=== PATIENT | female | born 1970 | race Caucasian/White ===

== ENCOUNTER 2020-01-22 02:26 | Emergency (ER) | payer SELFPAY ==
--- NOTE | 2020-01-22 02:44 | EDM.PDOC ---
ED HPI GENERAL MEDICAL PROBLEM - General Chief Complaint: Abdominal Pain Stated Complaint: UPPER ABDOMINAL PAIN THAT GOES INTO BACK Time Seen by Provider: 01/22/20 02:36 - History of Present Illness INITIAL COMMENTS - FREE TEXT/NARRATIVE: 49-year-old female presents to the emergency room with right upper quadrant pain. This pain started about 5 hours ago she has some associated nausea and a little bit of vomiting with it. Pain seems to radiate into her back and into her left anterior chest. The patient had an episode like this about 20 years ago but nothing recently. The patient has started a keto diet. Patient denies any fevers or chills. The patient is started the keto diet about 2 months ago this evening for supper she had baked chicken cauliflower and jalapeno poppers. Right Upper Abdomen Pain Score (Numeric/FACES): 10 - Related Data Allergies Allergy/AdvReac Type Severity Reaction Status Date / Time methylprednisolone Allergy Other Verified 01/22/20 02:37 [From Medrol] prednisone Allergy Other Verified 01/22/20 02:37 varenicline [From Chantix] Allergy Other Verified 01/22/20 02:37 Home Meds: Home Meds Albuterol Sulfate [Proair Hfa] 8.5 gm IH Q4HR PRN #1 hfa.aer.ad 02/18/18 [Rx] Benzonatate [Tessalon Perle] 100 mg PO TID #15 capsule 02/18/18 [Rx] Lisinopril 20 mg PO DAILY 02/18/18 [History] Venlafaxine [Effexor] 75 mg PO DAILY 02/18/18 [History] Acetaminophen/HYDROcodone [[place] 325-5 MG] 1 - 2 tab PO Q6H PRN #25 tablet 01/22/20 [Rx] Ondansetron [Zofran ODT] 4 mg PO Q6H PRN #12 tab.dis 01/22/20 [Rx] Past Medical History HEENT History: Reports: Other (See Below) Other HEENT History: left ear surgery-new eardrum revision Cardiovascular History: Reports: Hypertension Psychiatric History: Reports: Anxiety - Past Surgical History HEENT Surgical History: Reports: Adenoidectomy, Tonsillectomy Female Surgical History: Reports: Section Social & Family History - Caffeine Use Caffeine Use: Reports: Coffee, Energy Drinks, Soda, Tea ED ROS GENERAL - Review of Systems Review Of Systems: See Below Constitutional: Reports: No Symptoms Respiratory: Reports: No Symptoms Cardiovascular: Reports: Chest Pain (This seems to be radiating from her abdomen) GI/Abdominal: Reports: Abdominal Pain, Nausea, Vomiting. Denies: Constipation, Diarrhea : Reports: No Symptoms Musculoskeletal: Reports: No Symptoms Skin: Reports: No Symptoms Neurological: Reports: No Symptoms ED EXAM, GI/ABD - Physical Exam Exam: See Below Exam Limited By: No Limitations General Appearance: Alert, Moderate Distress (From the discomfort), Obese (She is morbidly obese BMI 55.6) Head: Atraumatic, Normocephalic Neck: Normal Inspection, Supple, Non-Tender, Full Range of Motion Respiratory/Chest: No Respiratory Distress, Lungs Clear, Normal Breath Sounds Cardiovascular: Regular Rate, Rhythm, No Edema, No Murmur GI/Abdominal Exam: Normal Bowel Sounds, Soft, Other (If you get right upper quadrant pain palpation over the gallbladder seems to cause the pain that brought the patient in) Back Exam: Normal Inspection. No: CVA Tenderness (L), CVA Tenderness (R) Course - Vital Signs Last Recorded V/S: Last Vital Signs Temp 36.6 C 01/22/20 02:35 Pulse 107 H 01/22/20 02:35 Resp 18 01/22/20 02:35 BP 159/118 H 01/22/20 02:35 Pulse Ox 97 01/22/20 02:35 - Orders/Labs/Meds Orders: Active Orders 24 hr Category Date Time Status EKG Documentation Completion [RC] STAT Care 01/22/20 02:54 Active Labs: Laboratory Tests 01/22/20 01/22/20 Range/Units 02:45 02:45 WBC 10.29 H (3.98-10.04) K/mm3 RBC 4.57 (3.98-5.22) M/mm3 Hgb 14.0 (11.2-15.7) gm/dl Hct 43.2 (34.1-44.9) % MCV 94.5 (79.4-94.8) fl MCH 30.6 (25.6-32.2) pg MCHC 32.4 (32.2-35.5) g/dl RDW Std Deviation 45.1 (36.4-46.3) fL Plt Count 332 (182-369) K/mm3 MPV 9.7 (9.4-12.3) fl Neut % (Auto) 64.4 (34.0-71.1) % Lymph % (Auto) 23.3 (19.3-51.7) % [place] % (Auto) 7.6 (4.7-12.5) % Eos % (Auto) 3.9 (0.7-5.8) Baso % (Auto) 0.5 (0.1-1.2) % Neut # (Auto) 6.63 H (1.56-6.13) K/mm3 Lymph # (Auto) 2.40 (1.18-3.74) K/mm3 [place] # (Auto) 0.78 H (0.24-0.36) K/mm3 Eos # (Auto) 0.40 H (0.04-0.36) K/mm3 Baso # (Auto) 0.05 (0.01-0.08) K/mm3 Manual Slide Review Normal smear Sodium 137 (136-145) mEq/L Potassium 4.5 (3.5-5.1) mEq/L Chloride 102 (98-107) mEq/L Carbon Dioxide 28 (21-32) mEq/L Anion Gap 11.5 (5-15) BUN 25 H (7-18) mg/dL Creatinine 1.2 H (0.55-1.02) mg/dL Est Cr Clr Drug Dosing 48.97 mL/min Estimated GFR (MDRD) 48 (>60) mL/min BUN/Creatinine Ratio 20.8 H (14-18) Glucose 148 H (74-106) mg/dL Calcium 9.2 (8.5-10.1) mg/dL Total Bilirubin 0.3 (0.2-1.0) mg/dL Direct Bilirubin 0.00 (0.0-0.2) mg/dl AST 13 L (15-37) U/L ALT 32 (14-59) U/L Alkaline Phosphatase 77 (46-116) U/L Troponin I < 0.017 (0.00-0.056) ng/mL Total Protein 7.5 (6.4-8.2) g/dl Albumin 3.6 (3.4-5.0) g/dl Globulin 3.9 gm/dL Albumin/Globulin Ratio 0.9 L (1-2) Lipase 86 (73-393) U/L Meds: Medications Discontinued Medications Generic Name Dose Route Start Last Admin Trade Name Shivamq PRN Reason Stop Dose Admin Hydrocodone Bitart/Acetaminophen 2 tab 01/22/20 04:42 [place] 325-5 Mg PO 01/22/20 04:43 ONETIME ONE Fentanyl 50 mcg 01/22/20 02:57 01/22/20 03:06 Sublimaze IVPUSH 01/22/20 02:58 50 mcg ONETIME ONE Administration Ondansetron HCl 4 mg 01/22/20 02:57 01/22/20 03:04 Zofran IVPUSH 01/22/20 02:58 4 mg ONETIME ONE Administration - Re-Assessments/Exams Free Text/Narrative Re-Assessment/Exam: 01/22/20 04:43 Had brief symptom improvement with the fentanyl. Unfortunately we were busy with urgencies here in the emergency room and it took us a while to get back to her. Her laboratory evaluation is probably okay her white count is minimally elevated compared to our normal at 10.29 chemistries show a normal anion gap however BUN is elevated 25 creatinine 1.2. Transaminases normal bilirubin normal. 01/22/20 04:52 Dr. Cruz is unavailable as he is in a surgery I did discuss this with the patient she would really like to go home right now I will discuss the case with the surgeon after he gets out of surgery. I have put an order in for an outpatient gallbladder ultrasound to be forwarded to her regular provider and 01/22/20 05:09 I did review the patient's case lab values and vital signs with Dr. Cruz who agrees with disposition and plan. Departure - Departure Time of Disposition: 04:50 Disposition: Home, Self-Care 01 Clinical Impression: Right upper quadrant pain - Discharge Information Prescriptions: Acetaminophen/HYDROcodone [[place] 325-5 MG] 1 - 2 tab PO Q6H PRN #25 tablet PRN Reason: Pain Ondansetron [Zofran ODT] 4 mg PO Q6H PRN #12 tab.dis PRN Reason: Nausea/Vomiting Instructions: Abdominal Pain, Adult, Awmg-dt-Gmpl Referrals: Laurel Srinivasan NP [Primary Care Provider] - Elodia Cruz MD [Physician] - Forms: ED Department Discharge Additional Instructions: Return to the emergency room with any questions problems or worsening symptoms. Follow-up with Dr. Cruz later this week. You have been given [place], hydrocodone acetaminophen, take 1 or 2 every 6 hours as needed for pain. You have also been given Zofran, this is for nausea and vomiting take 1 every 6 hours only if needed for nausea and vomiting. This will dissolve on or under your tongue. Sepsis Event Note (ED) - Focused Exam Vital Signs: Vital Signs Temp Pulse Resp BP Pulse Ox 01/22/20 02:35 36.6 C 107 H 18 159/118 H 97 - My Orders Last 24 Hours: My Active Orders 01/22/20 02:54 EKG Documentation Completion [RC] STAT - Assessment/Plan Last 24 Hours: My Active Orders 01/22/20 02:54 EKG Documentation Completion [RC] STAT
[2020-01-22] MEDS ORDERED: Ondansetron 4 MG/2 ML SDV IVPUSH ONE (02:57)
[2020-01-22] MEDS ORDERED: fentaNYL 100 MCG/2 ML SDV IVPUSH ONE (02:57)
[2020-01-22] MEDS ORDERED: Acetaminophen/HYDROcodone 325-5 MG Tab PO ONE (04:42)
== END 2020-01-22 05:13 | disposition home or self-care (01) ==
LOC: JD.ED 02:26
DX: R10.11 Right upper quadrant pain (principal); I10 Essential (primary) hypertension; F41.9 Anxiety disorder, unspecified; Z88.8 Allergy status to other drugs, medicaments and biological substances; Z79.899 Other long term (current) drug therapy
CPT/HCPCS: 36415; 80053; 82248; 83690; 84484; 85025; 93005; 96374; 96375; 99284; A9270; J2405; J3010; 93010

== ENCOUNTER 2020-05-29 07:35 | Emergency (ER) | payer SELFPAY ==
--- NOTE | 2020-05-29 08:55 | CR ---
Chest: Portable view of the chest was obtained. Comparison: Prior chest x-ray of 02/18/18. Increased density is seen within the right lung base. This is noted on prior study but appears slightly more prominent. Lungs show no definite acute parenchymal change. Heart size and mediastinum are normal. Bony structures show nothing acute. Impression: 1. Density within the right lung base appears slightly more prominent. This most likely represents an area of scarring but recommend noncontrast chest CT study to confirm. 2. Nothing acute is otherwise seen on portable chest x-ray. Diagnostic code #9
--- NOTE | 2020-05-29 09:24 | CT ---
CT chest Technique: Multiple axial sections were obtained from above the dome of the diaphragm inferiorly through the lung bases. Intravenous contrast was not utilized. Reconstructed coronal and sagittal images were obtained. Comparison: Prior chest x-ray performed earlier on the same day (7:55 AM). Findings: Lungs are clear. Previous density on chest x-ray is not appreciated on this CT exam. Findings most likely represent overlying normal parenchymal change. Thoracic aorta shows no aneurysm. No mediastinal abnormality is seen. Minimal coronary artery calcification is noted. No pericardial thickening is appreciated. Diffuse fatty infiltration is seen within the liver. Bone window settings were reviewed which show minimal scattered degenerative change within the spine. No acute osseous finding is appreciated. Impression: 1. Nothing acute is seen on noncontrast chest CT study. Other incidental findings as noted above. 2. Prior density on chest x-ray is not confirmed on the chest CT presumably representing artifact from normal overlying tissues. Diagnostic code #2
[2020-05-29] MEDS ORDERED: cefTRIAXone 1 GM, Lidocaine 1% 2.1 ML IM ONE ×2 (09:39)
[2020-05-29] MEDS ORDERED: Doxycycline 100 MG Cap PO ONE (09:39)
--- NOTE | 2020-05-29 09:49 | EDM.PDOC ---
ED HPI GENERAL MEDICAL PROBLEM - General Chief Complaint: General Stated Complaint: L EAR PAIN / R ANKLE PAIN Time Seen by Provider: 05/29/20 07:45 Source of Information: Reports: Patient History Limitations: Reports: No Limitations - History of Present Illness INITIAL COMMENTS - FREE TEXT/NARRATIVE: The patient has come in with 2 complaints. For several days she has been trou bled by an earache on the left. She has been swimming and thinks this is irritated it. She has also been using Q-tips in both ears. She notes that she has a perforated TM on the left. There has been no fever, nausea, vomiting, chest pain, cough, or shortness of breath. Additionally for about 3 days she has been troubled with worsening tenderness and redness of the skin distal right leg laterally just above the ankle. Dependency and walking makes it hurt worse. As noted above no fever or other troubling symptoms. Risk factors consist of morbid obesity, former smoking status, known COPD, and diabetes. Left Ear Pain Score (Numeric/FACES): 7 - Related Data Allergies Allergy/AdvReac Type Severity Reaction Status Date / Time varenicline [From Chantix] Allergy Severe Other Verified 05/29/20 07:46 methylprednisolone AdvReac Severe Other Verified 05/29/20 07:46 [From Medrol] prednisone AdvReac Severe Other Verified 05/29/20 07:46 Home Meds: Home Meds Albuterol Sulfate [Proair Hfa] 8.5 gm IH Q4HR PRN #1 hfa.aer.ad 02/18/18 [Rx] Lisinopril 20 mg PO DAILY 02/18/18 [History] Venlafaxine [Effexor] 75 mg PO DAILY 02/18/18 [History] Amoxicillin/Clavulanate K [Augmentin 875-125 MG] 1 tab PO BID #20 tablet 05/29/20 [Rx] Doxycycline [Vibramycin] 100 mg PO BID #20 cap 05/29/20 [Rx] Dulaglutide [Trulicity] 0 mg SQ WEEKLY 05/29/20 [History] Past Medical History HEENT History: Reports: Other (See Below) Other HEENT History: left ear surgery-new eardrum revision. 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 Cardiovascular History: Reports: Hypertension Psychiatric History: Reports: Anxiety Endocrine/Metabolic History: Reports: Diabetes, Type II, Obesity/BMI 30+ - Infectious Disease History Infectious Disease History: Reports: MRSA - Past Surgical History HEENT Surgical History: Reports: Adenoidectomy, Tonsillectomy Female Surgical History: Reports: Section Social & Family History - Tobacco Use Tobacco Use Status *Q: Former Tobacco User - Caffeine Use Caffeine Use: Reports: Soda - Recreational Drug Use Recreational Drug Use: No ED ROS GENERAL - Review of Systems Review Of Systems: Comprehensive ROS is negative, except as noted in HPI. ED EXAM, GENERAL - Physical Exam Exam: See Below Exam Limited By: No Limitations General Appearance: Alert, WD/WN, No Apparent Distress, Other (See full exam below.) Course - Vital Signs Text/Narrative:: Exam the patient is obese and in no distress. Head normocephalic atraumatic. EOMI PERRLA. Examination of the right ear, there is edema of the canal and some mild excoriation. She could not permit an exam that would permit me to see the tympanic membrane. On the left side there was even more pronounced edema of the canal and a good bit of pain on exam. Again she could not permit the speculum to be advanced to the point that the TM could be seen let alone the perforation. Neck supple without JVD. Lungs, decreased breath sounds bilaterally but otherwise clear. Heart regular, initially a bit tachycardic but normal at the time of exam. Abdomen soft, obese, no tenderness or other signs. No guarding or rebound. There is mild erythema of the right leg laterally just above the ankle. No pronounced angry cellulitic appearance but just mild erythema. It is confluent with a maximum dimension about 10 cm longitudinally. There is no calf tenderness. No Homans. No pitting edema. Neurologically the patient is intact, fluent speech no lateralizing deficits. She is calm and a ffect normal. Last Recorded V/S: Last Vital Signs Temp 35.6 C L 05/29/20 07:42 Pulse 103 H 05/29/20 07:42 Resp 20 05/29/20 07:42 BP 141/86 H 05/29/20 07:42 Pulse Ox 96 05/29/20 07:42 - Orders/Labs/Meds Labs: Laboratory Tests 05/29/20 05/29/20 05/29/20 Range/Units 08:02 08:07 08:30 WBC 10.75 H (3.98-10.04) K/mm3 RBC 4.43 (3.98-5.22) M/mm3 Hgb 13.8 (11.2-15.7) gm/dl Hct 43.1 (34.1-44.9) % MCV 97.3 H (79.4-94.8) fl MCH 31.2 (25.6-32.2) pg MCHC 32.0 L (32.2-35.5) g/dl RDW Std Deviation 46.2 (36.4-46.3) fL Plt Count 271 (182-369) K/mm3 MPV 9.6 (9.4-12.3) fl Neut % (Auto) 70.5 (34.0-71.1) % Lymph % (Auto) 16.1 L (19.3-51.7) % [place] % (Auto) 10.2 (4.7-12.5) % Eos % (Auto) 2.2 (0.7-5.8) Baso % (Auto) 0.5 (0.1-1.2) % Neut # (Auto) 7.58 H (1.56-6.13) K/mm3 Lymph # (Auto) 1.73 (1.18-3.74) K/mm3 [place] # (Auto) 1.10 H (0.24-0.36) K/mm3 Eos # (Auto) 0.24 (0.04-0.36) K/mm3 Baso # (Auto) 0.05 (0.01-0.08) K/mm3 Manual Slide Review Normal smear Sodium (136-145) mEq/L Potassium (3.5-5.1) mEq/L Chloride (98-107) mEq/L Carbon Dioxide (21-32) mEq/L Anion Gap (5-15) BUN (7-18) mg/dL Creatinine (0.55-1.02) mg/dL Est Cr Clr Drug Dosing mL/min Estimated GFR (MDRD) (>60) mL/min BUN/Creatinine Ratio (14-18) Glucose (74-106) mg/dL Calcium (8.5-10.1) mg/dL Total Bilirubin (0.2-1.0) mg/dL AST (15-37) U/L ALT (14-59) U/L Alkaline Phosphatase (46-116) U/L C-Reactive Protein (<1.0) mg/dL Total Protein (6.4-8.2) g/dl Albumin (3.4-5.0) g/dl Globulin gm/dL Albumin/Globulin Ratio (1-2) Urine Color Yellow (Yellow) Urine Appearance Clear (Clear) Urine pH 5.5 (5.0-8.0) Ur Specific [place] > or = 1.030 (1.005-1.030) Urine Protein Trace H (Negative) Urine Glucose (UA) Trace H (Negative) Urine Ketones Trace H (Negative) Urine Occult Blood Negative (Negative) Urine Nitrite Negative (Negative) Urine Bilirubin Negative (Negative) Urine Urobilinogen 0.2 (0.2-1.0) Ur Leukocyte Esterase Negative (Negative) Urine RBC 0-5 (0-5) /hpf Urine WBC 0-5 (0-5) /hpf Ur Squamous Epith Cells 0-5 (0-5) /hpf Urine Bacteria Many H (FEW) /hpf Urine Mucus Few (FEW) /hpf Urine HCG, Qual Negative (NEGATIVE) 05/29/20 Range/Units 08:30 WBC (3.98-10.04) K/mm3 RBC (3.98-5.22) M/mm3 Hgb (11.2-15.7) gm/dl Hct (34.1-44.9) % MCV (79.4-94.8) fl MCH (25.6-32.2) pg MCHC (32.2-35.5) g/dl RDW Std Deviation (36.4-46.3) fL Plt Count (182-369) K/mm3 MPV (9.4-12.3) fl Neut % (Auto) (34.0-71.1) % Lymph % (Auto) (19.3-51.7) % [place] % (Auto) (4.7-12.5) % Eos % (Auto) (0.7-5.8) Baso % (Auto) (0.1-1.2) % Neut # (Auto) (1.56-6.13) K/mm3 Lymph # (Auto) (1.18-3.74) K/mm3 [place] # (Auto) (0.24-0.36) K/mm3 Eos # (Auto) (0.04-0.36) K/mm3 Baso # (Auto) (0.01-0.08) K/mm3 Manual Slide Review Sodium 141 (136-145) mEq/L Potassium 4.2 (3.5-5.1) mEq/L Chloride 102 (98-107) mEq/L Carbon Dioxide 29 (21-32) mEq/L Anion Gap 14.2 (5-15) BUN 15 (7-18) mg/dL Creatinine 1.0 (0.55-1.02) mg/dL Est Cr Clr Drug Dosing 58.12 mL/min Estimated GFR (MDRD) 59 (>60) mL/min BUN/Creatinine Ratio 15.0 (14-18) Glucose 242 H (74-106) mg/dL Calcium 9.1 (8.5-10.1) mg/dL Total Bilirubin 0.5 (0.2-1.0) mg/dL AST 20 (15-37) U/L ALT 51 (14-59) U/L Alkaline Phosphatase 81 (46-116) U/L C-Reactive Protein 3.6 H* (<1.0) mg/dL Total Protein 7.2 (6.4-8.2) g/dl Albumin 3.4 (3.4-5.0) g/dl Globulin 3.8 gm/dL Albumin/Globulin Ratio 0.9 L (1-2) Urine Color (Yellow) Urine Appearance (Clear) Urine pH (5.0-8.0) Ur Specific [place] (1.005-1.030) Urine Protein (Negative) Urine Glucose (UA) (Negative) Urine Ketones (Negative) Urine Occult Blood (Negative) Urine Nitrite (Negative) Urine Bilirubin (Negative) Urine Urobilinogen (0.2-1.0) Ur Leukocyte Esterase (Negative) Urine RBC (0-5) /hpf Urine WBC (0-5) /hpf Ur Squamous Epith Cells (0-5) /hpf Urine Bacteria (FEW) /hpf Urine Mucus (FEW) /hpf Urine HCG, Qual (NEGATIVE) Meds: Medications Discontinued Medications Generic Name Dose Route Start Last Admin Trade Name Freq PRN Reason Stop Dose Admin Ceftriaxone Sodium 1 gm/ 0 gm 05/29/20 09:39 05/29/20 10:11 Lidocaine HCl 2.1 ml IM 05/29/20 09:40 1 inj ONETIME ONE Administration Doxycycline Hyclate 200 mg 05/29/20 09:39 05/29/20 10:11 Doxycycline 100 Mg Cap PO 05/29/20 09:40 200 mg ONETIME ONE Administration Ketorolac Tromethamine 15 mg 05/29/20 10:20 Ketorolac 30 Mg/Ml Sdv IM 05/29/20 10:21 ONETIME ONE Neomycin/Polymyxin/Hydrocortisone 0 ml 05/29/20 10:15 05/29/20 10:10 Hydrocortisone/Neomycin/Polymyxin B Otic Susp 10 Ml Bottle EARBOTH 05/29/20 10:16 4 drop ONETIME ONE Administration - Re-Assessments/Exams Free Text/Narrative Re-Assessment/Exam: 05/29/20 09:56 Chest x-ray was noted to show possible density in the left lower lobe. This was thought to be scar tissue but noncontrast CT was recommended which showed no acute pathology in the chest. Labs have been reviewed. Blood glucose a bit elevated. C-reactive protein in the threes. Not surprisingly with evidence of infection. Urine is clean. Patient is being treated with 1 application of Cortisporin optic drops in both ears for relief of some of the edema but she is not to continue these drops at home. She is received a gram of Rocephin IM in the emergency department as well as a 200 mg p.o. dose of doxycycline. Patient should have overnight improvement in her symptoms and if not she is to return to the ER for recheck at any time even tomorrow. Departure - Departure Time of Disposition: 10:00 Disposition: Home, Self-Care 01 Condition: Good Clinical Impression: Otitis externa Qualifiers: Otitis externa type: unspecified type Chronicity: acute Laterality: bilateral Qualified Code(s): H60.503 - Unspecified acute noninfective otitis externa, bilateral Cellulitis Qualifiers: Site of cellulitis: extremity Site of cellulitis of extremity: lower extremity Laterality: right Qualified Code(s): L03.115 - Cellulitis of right lower limb - Discharge Information Prescriptions: Amoxicillin/Clavulanate K [Augmentin 875-125 MG] 1 tab PO BID #20 tablet Doxycycline [Vibramycin] 100 mg PO BID #20 cap Referrals: Laurel Srinivasan, [employer] [Primary Care Provider] - Forms: ED Department Discharge Additional Instructions: Primary within 3 days. She needs referral to an research pharmacist. As there is no ENT in [facility] the referral will have to be to [facility] Is there is no great urgency requiring transfer this can be accomplished over the next few days. In any event if there is any lack of resolution or improvement she needs to return to the ER and transfer will be contemplated. Sepsis Event Note (ED) - Evaluation Sepsis Screening Result: No Definite Risk - Focused Exam Vital Signs: Vital Signs Temp Pulse Resp BP Pulse Ox 05/29/20 07:42 35.6 C L 103 H 20 141/86 H 96
[2020-05-29] MEDS ORDERED: Hydrocortisone/Neomycin/Polymyxin B Otic Susp 10 ML Bottle EARBOTH ONE (10:15)
[2020-05-29] MEDS ORDERED: Ketorolac 30 MG/ML SDV IM ONE (10:20)
== END 2020-05-29 10:49 | disposition home or self-care (01) ==
LOC: JD.ED 07:35
DX: H60.503 Unspecified acute noninfective otitis externa, bilateral (principal); L03.115 Cellulitis of right lower limb; I10 Essential (primary) hypertension; E11.9 Type 2 diabetes mellitus without complications; E66.9 Obesity, unspecified; Z68.44 Body mass index [BMI] 60.0-69.9, adult; Z87.891 Personal history of nicotine dependence; Z88.8 Allergy status to other drugs, medicaments and biological substances; Z79.899 Other long term (current) drug therapy
CPT/HCPCS: 36415; 71045; 71250; 80053; 81001; 81025; 85025; 86140; 96372; 99284; A9270; J0696; J1885

== ENCOUNTER 2020-05-31 20:56 | Emergency (ER) | payer SELFPAY ==
[2020-05-31] MEDS ORDERED: Ketorolac 15 MG/ML SDV IVPUSH ONE (21:49)
--- NOTE | 2020-05-31 22:23 | EDM.PDOC ---
ED HPI GENERAL MEDICAL PROBLEM - General Chief Complaint: Skin Complaint Stated Complaint: EAR PAIN AND ANKLE PAIN Time Seen by Provider: 05/31/20 21:00 Source of Information: Reports: Patient History Limitations: Reports: No Limitations - History of Present Illness INITIAL COMMENTS - FREE TEXT/NARRATIVE: Patient was seen 2 days ago for problems related to her left ear which is an otitis externa and probably an otitis media though the exam was suboptimal as noted in previous record. Patient was also troubled by a mild soft tissue infection of her right leg laterally just above the ankle. She has come back in because the pain in her left ear is worse and now her left ear is prominent and the external ear is being slightly protuberant. She is also complaining of pain at the site of the soft tissue infection right lower leg. The patient has been taking antibiotics as directed. She was treated with Rocephin in the emergency department and she was discharged on Augmentin and Bactrim. She says she is taking her antibiotics as directed and has the bottles with her. There has been no fever or vira respiratory symptoms. Patient is just feeling a bit worse especially with respect to her left ear. Risk factors consist of hypertension, [id number] diabetes mellitus, and morbid obesity. The patient is a former smoker having quit about a year ago. Right Ankle Pain Score (Numeric/FACES): 8 Left Ear Pain Score (Numeric/FACES): 8 - Related Data Allergies Allergy/AdvReac Type Severity Reaction Status Date / Time varenicline [From Chantix] Allergy Severe Other Verified 05/31/20 21:08 methylprednisolone AdvReac Severe Other Verified 05/31/20 21:08 [From Medrol] prednisone AdvReac Severe Other Verified 05/31/20 21:08 Home Meds: Home Meds Albuterol Sulfate [Proair Hfa] 8.5 gm IH Q4HR PRN #1 [id number] 02/18/18 [Rx] Lisinopril 20 mg PO DAILY 02/18/18 [History] Venlafaxine [Effexor] 75 mg PO DAILY 02/18/18 [History] Amoxicillin/Clavulanate K [Augmentin 875-125 MG] 1 tab PO BID #20 tablet 05/29/20 [Rx] Doxycycline [Vibramycin] 100 mg PO BID #20 cap 05/29/20 [Rx] Dulaglutide [Trulicity] 1 injection SQ WEEKLY 05/29/20 [History] Past Medical History HEENT History: Reports: Other (See Below) Other HEENT History: left ear surgery-new eardrum revision. 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 Cellulitis to L ear Cardiovascular History: Reports: Hypertension Psychiatric History: Reports: Anxiety Endocrine/Metabolic History: Reports: Diabetes, Type II, Obesity/BMI 30+ Dermatologic History: Reports: Cellulitis - Infectious Disease History Infectious Disease History: Reports: MRSA - Past Surgical History HEENT Surgical History: Reports: Adenoidectomy, Tonsillectomy Female Surgical History: Reports: Section Social & Family History - Family History Family Medical History: No Pertinent Family History - Tobacco Use Tobacco Use Status *Q: Former Tobacco User Used Tobacco, but Quit: Yes Month/Year Tobacco Last Used: 2018 - Caffeine Use Caffeine Use: Reports: Soda - Recreational Drug Use Recreational Drug Use: No ED ROS GENERAL - Review of Systems Review Of Systems: Comprehensive ROS is negative, except as noted in HPI. ED EXAM, SKIN/RASH Exam: See Below Text/Narrative:: On exam the patient is alert and does not appear at all toxic. Head normocephalic atraumatic. EOMI PERRLA. The right ear canal is still a bit edematous and there is too much pain to advance the speculum far enough to see the tympanic membrane. The left ear is now prominent and standing out from the head a bit. There is still a good bit of edema in the canal and tenderness to the point that the speculum cannot be advanced far enough to see the tympanic membrane. Neck is supple without jugular venous distention. Lungs are grossly clear. Heart is regular. Abdomen is soft and nontender. Calves are somewhat tender bilaterally without vira Homans' sign. The erythema that was noted previously lower right leg laterally has faded to a great extent but there is still tenderness on deep palpation. There is no pitting edema. No cyanosis or clubbing of the digits. Neurologically the patient is intact, speech is fluent, no motor or sensory deficit. Skin is warm and dry with normal turgor. Course - Vital Signs Text/Narrative:: There is some concern because the patient has had appropriate outpatient antibio tic therapy without improvement of her otitis. Though she is still complaining about her right lower leg it has clinically improved. There is no fever and no white count. The otitis of her left ear appears to have worsened despite compliance with antibiotic therapy and now with the ear is somewhat protuberant. We spoke with Dr. Joy ENT in [place]. He has asked us to place ear emerson and soak them with an antibiotic-containing steroid. Emerson were placed in the ears bilaterally. Only available attic drops, Cortisporin, and the emerson were soaked with that. Patient is discharged. 2 Percocets have been given to the patient 1 now and 1 to take later as needed. She is to see Dr. Joy tomorrow morning, actually this morning, at 8:30 AM. His address and other contact information in [place] were given to the patient. She understands and is happy with this plan. Last Recorded V/S: Last Vital Signs Temp 36.2 C 05/31/20 21:04 Pulse 95 05/31/20 21:04 Resp 18 05/31/20 21:04 BP 155/88 H 05/31/20 21:04 Pulse Ox 100 05/31/20 21:04 - Orders/Labs/Meds Orders: Active Orders 24 hr Category Date Time Status Chest 1V Frontal [CR] Stat Exams 05/31/20 21:35 Taken Head w Cont [CT] Stat Exams 05/31/20 21:51 Taken Soft Tissue Neck w Cont [CT] Stat Exams 05/31/20 21:51 Taken Acetaminophen/oxyCODONE [Percocet 325-5 MG] Med 06/01/20 01:09 Once 2 tab PO ONETIME ONE Sodium Chloride 0.9% [Normal Saline] 100 ml Med 05/31/20 23:30 Active IV ASDIRECTED Medication Orders Sodium Chloride (Normal Saline) 100 mls @ 60 drops/min IV ASDIRECTED TISH Last Admin: 05/31/20 23:25 Dose: 60 drops/min Documented by: ONEIGIN Oxycodone/Acetaminophen (Acetaminophen/Oxycodone 325-5 Mg Tab) 2 tab PO ONETIME ONE Stop: 06/01/20 01:10 Labs: Laboratory Tests 05/31/20 05/31/20 05/31/20 Range/Units 21:45 21:45 21:45 WBC 8.96 (3.98-10.04) K/mm3 RBC 4.31 (3.98-5.22) M/mm3 Hgb 13.5 (11.2-15.7) gm/dl Hct 41.9 (34.1-44.9) % MCV 97.2 H (79.4-94.8) fl MCH 31.3 (25.6-32.2) pg MCHC 32.2 (32.2-35.5) g/dl RDW Std Deviation 45.6 (36.4-46.3) fL Plt Count 288 (182-369) K/mm3 MPV 9.4 (9.4-12.3) fl Neutrophils % (Manual) 69 H (40-60) % Band Neutrophils % 0 (0-10) % Lymphocytes % (Manual) 25 (20-40) % Atypical Lymphs % 0 % Monocytes % (Manual) 5 (2-10) % Eosinophils % (Manual) 1 (0.7-5.8) % Basophils % (Manual) 0 L (0.1-1.2) Platelet Estimate Adequate RBC Morph Comment Normal D-Dimer, Quantitative 0.33 (0.19-0.50) mg/L Sodium 141 (136-145) mEq/L Potassium 4.4 (3.5-5.1) mEq/L Chloride 103 (98-107) mEq/L Carbon Dioxide 32 (21-32) mEq/L Anion Gap 10.4 (5-15) BUN 14 (7-18) mg/dL Creatinine 0.9 (0.55-1.02) mg/dL Est Cr Clr Drug Dosing 64.58 mL/min Estimated GFR (MDRD) > 60 (>60) mL/min BUN/Creatinine Ratio 15.6 (14-18) Glucose 153 H (74-106) mg/dL Calcium 9.4 (8.5-10.1) mg/dL Total Bilirubin 0.4 (0.2-1.0) mg/dL AST 23 (15-37) U/L ALT 44 (14-59) U/L Alkaline Phosphatase 75 (46-116) U/L Total Protein 7.2 (6.4-8.2) g/dl Albumin 3.2 L (3.4-5.0) g/dl Globulin 4.0 gm/dL Albumin/Globulin Ratio 0.8 L (1-2) SARS-CoV-2 RNA (SHAKIRA) (NEGATIVE) 05/31/20 Range/Units 22:58 WBC (3.98-10.04) K/mm3 RBC (3.98-5.22) M/mm3 Hgb (11.2-15.7) gm/dl Hct (34.1-44.9) % MCV (79.4-94.8) fl MCH (25.6-32.2) pg MCHC (32.2-35.5) g/dl RDW Std Deviation (36.4-46.3) fL Plt Count (182-369) K/mm3 MPV (9.4-12.3) fl Neutrophils % (Manual) (40-60) % Band Neutrophils % (0-10) % Lymphocytes % (Manual) (20-40) % Atypical Lymphs % % Monocytes % (Manual) (2-10) % Eosinophils % (Manual) (0.7-5.8) % Basophils % (Manual) (0.1-1.2) Platelet Estimate RBC Morph Comment D-Dimer, Quantitative (0.19-0.50) mg/L Sodium (136-145) mEq/L Potassium (3.5-5.1) mEq/L Chloride (98-107) mEq/L Carbon Dioxide (21-32) mEq/L Anion Gap (5-15) BUN (7-18) mg/dL Creatinine (0.55-1.02) mg/dL Est Cr Clr Drug Dosing mL/min Estimated GFR (MDRD) (>60) mL/min BUN/Creatinine Ratio (14-18) Glucose (74-106) mg/dL Calcium (8.5-10.1) mg/dL Total Bilirubin (0.2-1.0) mg/dL AST (15-37) U/L ALT (14-59) U/L Alkaline Phosphatase (46-116) U/L Total Protein (6.4-8.2) g/dl Albumin (3.4-5.0) g/dl Globulin gm/dL Albumin/Globulin Ratio (1-2) SARS-CoV-2 RNA (SHAKIRA) Negative (NEGATIVE) Meds: Medications Generic Name Dose Route Start Last Admin Trade Name Freq PRN Reason Stop Dose Admin Sodium Chloride 100 mls @ 60 drops/min 05/31/20 23:30 05/31/20 23:25 Normal Saline IV 60 drops/min ASDIRECTED TISH Administration Oxycodone/Acetaminophen 2 tab 06/01/20 01:09 Acetaminophen/Oxycodone 325-5 Mg Tab PO 06/01/20 01:10 ONETIME ONE Discontinued Medications Generic Name Dose Route Start Last Admin Trade Name Delvin PRN Reason Stop Dose Admin Iopamidol 100 ml 05/31/20 23:24 05/31/20 23:26 Iopamidol 612 Mg/Ml 100 Ml Bottle IVPUSH 05/31/20 23:25 100 ml ONETIME ONE Administration Ketorolac Tromethamine 15 mg 05/31/20 21:49 05/31/20 22:02 Ketorolac 15 Mg/Ml Sdv IVPUSH 05/31/20 21:50 15 mg ONETIME ONE Administration Neomycin/Polymyxin/Hydrocortisone Confirm 06/01/20 00:58 06/01/20 01:02 Hydrocortisone/Neomycin/Polymyxin B Otic Susp 10 Ml Bottle Administered 06/01/20 00:59 10 ml Dose Administration 10 ml .ROUTE .STK-MED ONE Departure - Departure Time of Disposition: 01:15 Disposition: Home, Self-Care 01 Condition: Fair Clinical Impression: Otitis externa Qualifiers: Otitis externa type: unspecified type Chronicity: acute Laterality: bilateral Qualified Code(s): H60.503 - Unspecified acute noninfective otitis externa, bilateral - Discharge Information Referrals: Laurel Srinivasan, [facility] [Primary Care Provider] - Forms: ED Department Discharge Additional Instructions: Your soft tissue infection of the right leg is clinically improved. You do not have a fever and your white count is normal. However clinically the infection involving your left ear has worsened. We have placed ear emerson on both sides and they have been soaked and an antibiotic solution containing a steroid. We have done this at the direction of Dr. Joy ENT in [place]. You are to see him at 830 this morning in [place]. Contact information has been given to you. Sepsis Event Note (ED) - Evaluation Sepsis Screening Result: No Definite Risk - Focused Exam Vital Signs: Vital Signs Temp Pulse Resp BP Pulse Ox 05/31/20 21:04 36.2 C 95 18 155/88 H 100 - My Orders Last 24 Hours: My Active Orders 05/31/20 21:35 Chest 1V Frontal [CR] Stat 05/31/20 21:51 Head w Cont [CT] Stat Soft Tissue Neck w Cont [CT] Stat 05/31/20 23:30 Sodium Chloride 0.9% [Normal Saline] 100 ml IV ASDIRECTED 06/01/20 01:09 Acetaminophen/oxyCODONE [Percocet 325-5 MG] 2 tab PO ONETIME ONE - Assessment/Plan Last 24 Hours: My Active Orders 05/31/20 21:35 Chest 1V Frontal [CR] Stat 05/31/20 21:51 Head w Cont [CT] Stat Soft Tissue Neck w Cont [CT] Stat 05/31/20 23:30 Sodium Chloride 0.9% [Normal Saline] 100 ml IV ASDIRECTED 06/01/20 01:09 Acetaminophen/oxyCODONE [Percocet 325-5 MG] 2 tab PO ONETIME ONE
[2020-05-31] MEDS ORDERED: Iopamidol 612 MG/ML 100 ML Bottle IVPUSH ONE (23:24)
[2020-05-31] MEDS ORDERED: Sodium Chloride 0.9% 100 ML IV SCH (23:30)
[2020-06-01] MEDS ORDERED: Hydrocortisone/Neomycin/Polymyxin B Otic Susp 10 ML Bottle ONE (00:58)
[2020-06-01] MEDS ORDERED: Acetaminophen/oxyCODONE 325-5 MG Tab PO ONE (01:09)
--- NOTE | 2020-06-01 08:57 | CR ---
Chest: Portable view of the chest was obtained. Comparison: Prior chest x-ray of 05/29/20 and 02/18/18. Heart size and mediastinum are normal. Lungs are clear with no acute parenchymal change. Bony structures are grossly intact. Impression: 1. Nothing acute is seen on portable chest x-ray. Diagnostic code #1
--- NOTE | 2020-06-01 09:03 | CT ---
Head CT Technique: Multiple axial sections through the brain were obtained. Intravenous contrast was utilized. Reconstructed coronal and axial images were obtained. Comparison: No prior intracranial imaging is available. Findings: Retention cyst is noted within both maxillary sinuses. Mild mucosal thickening is noted within the right maxillary sinus. No other acute findings are seen within the paranasal sinuses. Left mastoidectomy is seen. Soft tissue density external to the left mastoid sinus is seen. Findings are most likely chronic but no old films are available to confirm. Slight mucosal thickening is seen within the external and middle ear cavity on the left side. Ventricles along with basal cisterns and sulci over the convexities appear within normal limits. No abnormal parenchymal densities are seen. No evidence of intracranial enhancement. No midline shift or mass-effect is seen. Bone window settings were reviewed which show no acute calvarial finding. No vascular calcification is appreciated. Impression: 1. Previous left mastoidectomy. 2. Question of left acute otitis media as noted on CT neck study. 3. No acute intracranial abnormality is appreciated. Diagnostic code #3 I agree with preliminary report from [facility], finalized on 06/01/20, 12:42 AM CDT
--- NOTE | 2020-06-01 09:15 | CT ---
CT neck Technique: Multiple axial sections were obtained from above the external auditory canals inferiorly to above the lung apices. Reconstructed coronal and sagittal images were obtained. Intravenous contrast was not utilized. Comparison: No prior CT neck study is available. Findings: Prior mastoid sinus surgery is seen. Diffuse opacification is noted within the left mastoidectomy. Soft tissue density is also seen external to the left mastoid sinus. Retention cysts are noted within both maxillary sinuses. Right maxillary sinus also shows mild mucosal thickening. There is soft tissue density within the external auditory canal on the left side with slight soft tissue density also seen within the left middle ear cavity. Difficult to exclude acute mild otitis media although this may also be chronic. Right mastoid sinuses and right middle ear cavities are clear. No ossicular bones are seen on the left side. Parotid salivary gland and submandibular salivary glands show no focal abnormality. Small scattered lymph nodes are seen which are felt to be within normal limits. No acute osseous finding is appreciated. Impression: 1. Prior left mastoidectomy. There is increased soft tissue density within the mastoidectomy defect which is likely chronic. Soft tissue density extends outside the mastoid sinus which is most likely chronic although I have no old films to confirm. 2. Lack of ossicular bones within the left middle ear cavity most likely representing postsurgical. Soft tissue density within the left external auditory canal and left middle ear cavity which could represent infection as well as being chronic. 3. Chronic sinus findings as noted above. 4. Nothing acute is otherwise seen. Diagnostic code #3 I agree with preliminary report from [facility], finalized on 06/01/20, 12:45 AM Central Daylight Time
== END 2020-06-01 01:23 | disposition home or self-care (01) ==
LOC: JD.ED 20:56
DX: H60.503 Unspecified acute noninfective otitis externa, bilateral (principal); M25.571 Pain in right ankle and joints of right foot; I10 Essential (primary) hypertension; E11.9 Type 2 diabetes mellitus without complications; E66.9 Obesity, unspecified; Z68.44 Body mass index [BMI] 60.0-69.9, adult; Z87.891 Personal history of nicotine dependence; Z88.8 Allergy status to other drugs, medicaments and biological substances; Z79.899 Other long term (current) drug therapy; Z20.822 Contact with and (suspected) exposure to COVID-19
CPT/HCPCS: 36415; 70460; 70491; 71045; 80053; 85007; 85027; 85379; 87635; 96374; 99284; A9270; J1885; Q9967; 99283; U0002

== ENCOUNTER 2020-12-26 05:58 | Emergency (ER) | payer SELFPAY ==
[2020-12-26] MEDS ORDERED: Ondansetron 4 MG Tab.DIS PO ONE (06:35)
--- NOTE | 2020-12-26 06:39 | EDM.PDOC ---
ED HPI GENERAL MEDICAL PROBLEM - General Chief Complaint: Respiratory Problem Stated Complaint: SOB Time Seen by Provider: 12/26/20 06:13 Source of Information: Reports: Patient History Limitations: Reports: No Limitations - History of Present Illness INITIAL COMMENTS - FREE TEXT/NARRATIVE: Ms. Heredia is a pleasant 58-year-old woman who now presents the ED stating that she developed a cough productive of yellowish sputum 2 days ago, , 12/24/2020. She then developed generalized body aches yesterday, 12/25/2020. She states that she woke this morning with a choking sensation, a subjective fever, lightheadedness, and nausea. The patient states that she took some DayQuil yesterday, and some Advil last night. Here in the ED, the patient's initial BP is found to be slightly elevated at 138/91, with tachycardia 122 bpm and tachypnea of 22 rpm. She has a fever of 102.4 degrees, with an oxygen saturation of 93% on room air. Of note, the patient was noted to be using her albuterol MDI numerous times in the waiting room, which may account for her tachycardia and tachypnea. Prior to , the patient denies having a recent fever, chills, sore throa t, ear pain, nasal or sinus congestion, cough, dyspnea, chest pain, palpitations, nausea, vomiting, constipation, diarrhea, abdominal pain, urinary symptoms, recent weight gain or weight loss, recent bloody bowel movements or black bowel movements, recent joint aches, headaches, or rashes. The patient's PCP is Laurel Srinivasan NP. She has not received a COVID vaccination. No influenza vaccination this season. Back Pain Score (Numeric/FACES): 7 - Related Data Allergies Allergy/AdvReac Type Severity Reaction Status Date / Time varenicline [From Chantix] Allergy Unknown Other Verified 12/26/20 06:24 methylprednisolone AdvReac Intermediate Other Verified 12/26/20 06:24 [From Medrol] prednisone AdvReac Intermediate Other Verified 12/26/20 06:24 Home Meds: Home Meds Albuterol Sulfate [Proair Hfa] 8.5 gm IH Q4HR PRN #1 [id number].[id number] 02/18/18 [Rx] Lisinopril 20 mg PO DAILY 02/18/18 [History] Venlafaxine [Effexor] 75 mg PO DAILY 02/18/18 [History] Dulaglutide [Trulicity] 1 injection SQ WEEKLY 05/29/20 [History] Past Medical History Cardiovascular History: Reports: Hypertension Respiratory History: Reports: COPD (PFT-proven) Psychiatric History: Reports: Anxiety (untreated) Endocrine/Metabolic History: Reports: Diabetes, Type II, Obesity/BMI 30+ - Infectious Disease History Infectious Disease History: Reports: MRSA - Past Surgical History HEENT Surgical History: Reports: Adenoidectomy, Naso-Sinus Surgery, Oral Surgery (dental extractions), Tonsillectomy, Other (See Below) (Left ear canal and TM repair) Female Surgical History: Reports: Section (x 3), Hysterectomy (partial) Social & Family History - Tobacco Use Tobacco Use Within Last Twelve Months: Vaping (Nicotine) Years of Tobacco use: 25 Packs/Tins Daily: 1.5 Month/Year Tobacco Last Used: Quit 2019 Tobacco Use Comment: Started smoking 1994 - Caffeine Use Caffeine Use: Reports: Soda - Alcohol Use Alcohol Use History: Yes Alcohol Use Frequency: Socially - Recreational Drug Use Recreational Drug Use: No - Living Situation & Occupation Living situation: Reports: , with Family (Brother + his and child) 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 ED EXAM, GENERAL - Physical Exam Exam: See Below Exam Limited By: No Limitations General Appearance: Alert, WD/WN, No Apparent Distress Eye Exam: Bilateral Eye: EOMI, Normal Inspection Ears: Normal External Exam, Normal Canal, Hearing Grossly Normal, Normal TMs Nose: Normal Inspection Throat/Mouth: Normal Inspection, Normal Lips, Normal Voice, No Airway Compromise Head: Atraumatic, Normocephalic Neck: Normal Inspection, Full Range of Motion Respiratory/Chest: No Respiratory Distress, No Accessory Muscle Use, Decreased Breath Sounds (throughout), Wheezing (very few, scattered). No: Crackles, Rhonchi, Stridor, Prolonged Expiration Cardiovascular: Normal Peripheral Pulses, Regular Rate, Rhythm, No Gallop, No JVD, No Murmur, No Rub Peripheral Pulses: 3+: Radial (L), Radial (R) GI/Abdominal: Normal Bowel Sounds, Soft, Non-Tender, No Organomegaly, No Distention, No Abnormal Bruit, No Mass Back Exam: Normal Inspection, Full Range of Motion, NT Extremities: Normal Inspection, Normal Range of Motion, Normal Capillary Refill Neurological: Alert, Oriented, Normal Cognition, No Motor/Sensory Deficits Psychiatric: Normal Affect Skin Exam: Warm, Dry, Intact, Normal Color, No Rash Course - Vital Signs Last Recorded V/S: Last Vital Signs Temp 39.1 C H 12/26/20 06:17 Pulse 122 H 12/26/20 06:17 Resp 22 H 12/26/20 06:17 BP 138/91 H 12/26/20 06:17 Pulse Ox 93 L 12/26/20 06:17 - Orders/Labs/Meds Orders: Active Orders 24 hr Category Date Time Status Chest 1V Frontal [CR] Stat Exams 12/26/20 06:34 Taken C-REACTIVE PROTEIN [CHEM] Stat Lab 12/26/20 06:34 Ordered CBC WITH MANUAL DIFF [HEME] Stat Lab 12/26/20 06:34 Ordered COMPREHENSIVE METABOLIC PN,CMP [CHEM] Stat Lab 12/26/20 06:34 Ordered CORONAVIRUS COVID-19 SHAKIRA [MOLEC] Stat Lab 12/26/20 06:07 Received Labs: Laboratory Tests 12/26/20 Range/Units 06:45 WBC 5.71 (3.98-10.04) K/mm3 RBC 4.56 (3.98-5.22) M/mm3 Hgb 14.4 (11.2-15.7) gm/dl Hct 43.2 (34.1-44.9) % MCV 94.7 (79.4-94.8) fl MCH 31.6 (25.6-32.2) pg MCHC 33.3 (32.2-35.5) g/dl RDW Std Deviation 45.0 (36.4-46.3) fL Plt Count 216 (182-369) K/mm3 MPV 9.8 (9.4-12.3) fl Meds: Medications Discontinued Medications Generic Name Dose Route Start Last Admin Trade Name Freq PRN Reason Stop Dose Admin Ondansetron HCl 4 mg 12/26/20 06:35 12/26/20 06:41 Ondansetron 4 Mg Tab.Dis PO 12/26/20 06:36 4 mg ONETIME ONE Administration - Re-Assessments/Exams Free Text/Narrative Re-Assessment/Exam: 12/26/20 06:35 A swab for the SARS-CoV-2 virus and influenza A + B viruses was obtained at triage. I have added a CBC, CMP, CRP, and chest x-ray. In the meantime, the patient will be given some Zofran ODT to address her nausea. 12/26/20 07:16 Portable chest radiograph appears to be grossly normal. The cardiac silhouette is within normal limits. No pulmonary vascular congestion. No pleural effusions seen on this AP view. No focal infiltrate. No pneumothorax. Formal read per the Radiologist pending. 12/26/20 07:48 The patient's CBC is unremarkable. Her CMP is remarkable for modest hyperglycemia of 152, and is otherwise unremarkable. Her CRP is mildly elevated at 1.4. Her swab for the SARS-CoV-2 virus is positive. Her swab for influenza A + B viruses is negative. 12/26/20 07:54 Test results discussed with the patient. As above, her CRP is only 1.4, which is a good prognostic indicator that she will not likely suffer severe complications from COVID-19. That being the case, I am not offering monoclonal antibodies, as our supply is very limited. I will discharge her home with recommendation that she stay adequately hydrated and take [id number] ibuprofen as needed for discomfort. She will need to strictly isolate through 01/05/2021, at which time she should get retested. Departure - Departure Time of Disposition: 07:56 Disposition: Home, Self-Care 01 Condition: Good Clinical Impression: COVID-19 - Discharge Information *PRESCRIPTION DRUG MONITORING PROGRAM REVIEWED*: Not Applicable *COPY OF PRESCRIPTION DRUG MONITORING REPORT IN PATIENT SARA: Not Applicable Referrals: Laurel Srinivasan NP [Primary Care Provider] - Forms: ED Department Discharge Additional Instructions: You were seen in the emergency room after developing a cough on , body aches on Monday, then a fever, a choking sensation, lightheadedness, and nausea this morning. Work-up in the ER included several blood tests, a swab for the SARS-CoV-2 virus and influenza A + B viruses, and a chest x-ray. Your swab for the SARS-CoV-2 virus returned positive. As discussed, your CRP, a measure of inflammation, is only mildly elevated at 1.4. This is a good prognostic indicator that you will not likely suffer significant consequences from COVID-19. For this reason, treatment with monoclonal antibodies was not offered. We recommend that you stay adequately hydrated and take dscg-isv-elbfzct ibuprofen as needed for discomfort. We recommend against taking any ieeg-awq-kuounmz cough or cold remedies, as they have been shown to be of no benefit, but do have side effects, such as an upset stomach. As discussed, it is imperative that you strictly isolate through 01/05/2021. At that time, you should get retested for the SARS-CoV-2 virus. If you are still positive, you need to remain isolated until you test negative. If any other problems, please do not hesitate to return to the ER. Sepsis Event Note (ED) - Evaluation Sepsis Screening Result: Possible Sepsis Risk - Focused Exam Vital Signs: Vital Signs Temp Pulse Resp BP Pulse Ox 12/26/20 06:17 39.1 C H 122 H 22 H 138/91 H 93 L - My Orders Last 24 Hours: My Active Orders 12/26/20 06:07 CORONAVIRUS COVID-19 SHAKIRA [MOLEC] Stat 12/26/20 06:34 Chest 1V Frontal [CR] Stat C-REACTIVE PROTEIN [CHEM] Stat CBC WITH MANUAL DIFF [HEME] Stat COMPREHENSIVE METABOLIC PN,CMP [CHEM] Stat - Assessment/Plan Last 24 Hours: My Active Orders 12/26/20 06:07 CORONAVIRUS COVID-19 SHAKIRA [MOLEC] Stat 12/26/20 06:34 Chest 1V Frontal [CR] Stat C-REACTIVE PROTEIN [CHEM] Stat CBC WITH MANUAL DIFF [HEME] Stat COMPREHENSIVE METABOLIC PN,CMP [CHEM] Stat
--- NOTE | 2020-12-26 07:36 | CR ---
Chest: Frontal view of the chest was obtained utilizing portable technique. Comparison: Prior chest x-ray of 05/31/20. Heart size and mediastinum are within normal limits. Lungs show no definite acute parenchymal change. Bony structures are grossly intact. Impression: 1. Nothing acute is seen on portable chest x-ray. If patient remains symptomatic, PA and lateral views would then be suggested. Diagnostic code #1
== END 2020-12-26 08:09 | disposition home or self-care (01) ==
LOC: JD.ED 05:58
DX: U07.1 COVID-19 (principal); R79.82 Elevated C-reactive protein (CRP); I10 Essential (primary) hypertension; J44.9 Chronic obstructive pulmonary disease, unspecified; E11.9 Type 2 diabetes mellitus without complications; E66.9 Obesity, unspecified; Z68.43 Body mass index [BMI] 50.0-59.9, adult; Z87.891 Personal history of nicotine dependence; Z88.8 Allergy status to other drugs, medicaments and biological substances; Z79.899 Other long term (current) drug therapy
CPT/HCPCS: 36415; 71045; 80053; 85007; 85027; 86140; 87635; 87804; 99284; A9270; U0002

== ENCOUNTER 2021-05-30 13:36 | Emergency (ER) | payer BC ==
[2021-05-30] MEDS ORDERED: Albuterol/Ipratropium 3.0-0.5 MG/3 ML Neb Soln NEB ONE ×2 (14:08→15:31)
[2021-05-30 15:17] LABS: CORONAVIRUS COVID-19 NAA NEGATIVE (NEGATIVE)
[2021-05-30] MEDS ORDERED: Doxycycline 100 MG Cap PO ONE (16:38)
== END 2021-05-30 17:00 | disposition home or self-care (01) ==
LOC: JD.ED 13:36
DX: J44.9 Chronic obstructive pulmonary disease, unspecified (principal); J01.90 Acute sinusitis, unspecified; I10 Essential (primary) hypertension; E11.9 Type 2 diabetes mellitus without complications; E66.9 Obesity, unspecified; Z87.891 Personal history of nicotine dependence; Z88.8 Allergy status to other drugs, medicaments and biological substances; Z79.899 Other long term (current) drug therapy; Z20.822 Contact with and (suspected) exposure to COVID-19; Z68.44 Body mass index [BMI] 60.0-69.9, adult
CPT/HCPCS: 0241U; 36415; 71045; 80053; 83880; 84484; 85025; 85379; 86140; 93005; 94640; 99285; A9270; J7620-GY

== ENCOUNTER 2021-11-17 19:21 | Emergency (ER) | payer BC, OTHER | END 2021-11-17 21:25 | disposition home or self-care (01) | LOC: JD.ED 19:21 | DX: N76.89 Other specified inflammation of vagina and vulva (principal); J44.9 Chronic obstructive pulmonary disease, unspecified; I10 Essential (primary) hypertension; E11.9 Type 2 diabetes mellitus without complications; F17.210 Nicotine dependence, cigarettes, uncomplicated; E66.9 Obesity, unspecified; Z68.43 Body mass index [BMI] 50.0-59.9, adult; Z88.8 Allergy status to other drugs, medicaments and biological substances; Z79.899 Other long term (current) drug therapy; Z86.16 Personal history of COVID-19; Z90.710 Acquired absence of both cervix and uterus | CPT/HCPCS: 99283 ==

== ENCOUNTER 2022-03-01 23:07 | Emergency (ER) | payer BC, OTHER ==
[2022-03-02] MEDS ORDERED: Acetaminophen/HYDROcodone 325-5 MG Tab PO ONE (02:02)
== END 2022-03-02 03:29 | disposition home or self-care (01) ==
LOC: JD.ED 23:07
DX: S49.91XA Unspecified injury of right shoulder and upper arm, initial encounter (principal); J44.9 Chronic obstructive pulmonary disease, unspecified; E11.9 Type 2 diabetes mellitus without complications; E66.9 Obesity, unspecified; Z68.44 Body mass index [BMI] 60.0-69.9, adult; Z88.8 Allergy status to other drugs, medicaments and biological substances; Z79.899 Other long term (current) drug therapy; Z86.16 Personal history of COVID-19; Z87.891 Personal history of nicotine dependence; W18.2XXA Fall in (into) shower or empty bathtub, initial encounter
CPT/HCPCS: 73030; 99283; A9270

== ENCOUNTER 2022-08-02 16:21 | Emergency (ER) | payer OTHER ==
[2022-08-02] MEDS ORDERED: Sodium Chloride 0.9% 10 ML Syringe FLUSH PRN (16:41)
[2022-08-02 17:08] LABS: BASOPHILS ABSOLUTE AUTO 0.01 K/mm3 (0.01-0.08); BASOPHILS PERCENT AUTO 0.1 % (0.1-1.2); EOSINOPHILS ABSOLUTE AUTO 0.02 K/mm3 (0.04-0.36); EOSINOPHILS PERCENT AUTO 0.2 (0.7-5.8); HEMATOCRIT 42.9 % (34.1-44.9); IMMATURE GRAN ABSOLUTE AUTO 0.21 K/mm3 (0.00-0.10); IMMATURE GRAN PERCENT AUTO 1.8 % (<=1.0); LYMPHOCYTES ABSOLUTE AUTO 0.99 K/mm3 (1.18-3.74); LYMPHOCYTES PERCENT AUTO 8.7 % (19.3-51.7); MEAN CORPUSCULAR HGB CONC 32.6 g/dl (32.2-35.5); MEAN CORPUSCULAR VOLUME 94.9 fl (79.4-94.8); MEAN PLATELET VOLUME 9.8 fl (9.4-12.3); MONOCYTES ABSOLUTE AUTO 0.68 K/mm3 (0.24-0.36); MONOCYTES PERCENT AUTO 5.9 % (4.7-12.5); NEUTROPHILS ABSOLUTE AUTO 9.52 K/mm3 (1.56-6.13); NEUTROPHILS PERCENT AUTO 83.3 % (34.0-71.1); PLATELET COUNT,PLT 256 K/mm3 (182-369); RED BLOOD CELL COUNT 4.52 M/mm3 (3.98-5.22); WHITE BLOOD CELL COUNT,WBC 11.43 K/mm3 (3.98-10.04)
[2022-08-02 17:41] LABS: ALBUMIN 3.4 g/dl (3.4-5.0); ANION GAP 14.4 (5-15); BILIRUBIN TOTAL 0.4 mg/dL (0.2-1.0); CALCIUM 9.4 mg/dL (8.5-10.1); EST CRCL DRUG DOSING (CG) 56.83 mL/min; POTASSIUM,K 4.4 mEq/L (3.5-5.1); PROTEIN TOTAL,TP 6.8 g/dl (6.4-8.2)
[2022-08-02] MEDS ORDERED: Sodium Chloride 0.9% 1,000 ML IV STA (18:12)
== END 2022-08-02 18:15 | disposition left against medical advice (07) ==
LOC: JD.ED 16:21
DX: E11.65 Type 2 diabetes mellitus with hyperglycemia (principal); I10 Essential (primary) hypertension; J44.9 Chronic obstructive pulmonary disease, unspecified; E66.9 Obesity, unspecified; Z86.16 Personal history of COVID-19; F17.210 Nicotine dependence, cigarettes, uncomplicated; Z68.44 Body mass index [BMI] 60.0-69.9, adult; Z88.1 Allergy status to other antibiotic agents; Z88.8 Allergy status to other drugs, medicaments and biological substances; Z79.84 Long term (current) use of oral hypoglycemic drugs; Z79.899 Other long term (current) drug therapy
CPT/HCPCS: 36415; 80053; 85025; 99283; J3490

== ENCOUNTER 2023-07-23 18:54 | Emergency (ER) | payer OTHER ==
[2023-07-23] MEDS: Albuterol/Ipratropium 3.0-0.5 MG/3 ML Neb Soln NEB ONE (20:49)
[2023-07-23] MEDS: predniSONE 20 MG Tab PO ONE (20:57)
== END 2023-07-23 22:50 | disposition home or self-care (01) ==
LOC: JD.ED 18:54
DX: J44.1 Chronic obstructive pulmonary disease with (acute) exacerbation (principal); I10 Essential (primary) hypertension; E11.9 Type 2 diabetes mellitus without complications; Z88.8 Allergy status to other drugs, medicaments and biological substances; Z79.51 Long term (current) use of inhaled steroids; Z79.84 Long term (current) use of oral hypoglycemic drugs; Z79.899 Other long term (current) drug therapy; Z86.73 Personal history of transient ischemic attack (TIA), and cerebral infarction without residual deficits; Z90.710 Acquired absence of both cervix and uterus
CPT/HCPCS: 71045; 93005; 94640; 99285; J7512; 93010; 99284; J7620-GY

== ENCOUNTER 2023-10-09 00:06 | Emergency (ER) | payer OTHER ==
[2023-10-09] MEDS: Lidocaine 1% 10 ML MDV INJECT ONE (01:30)
== END 2023-10-09 01:52 | disposition home or self-care (01) ==
LOC: JD.ED 00:06
DX: S61.412A Laceration without foreign body of left hand, initial encounter (principal); I10 Essential (primary) hypertension; J44.9 Chronic obstructive pulmonary disease, unspecified; E11.9 Type 2 diabetes mellitus without complications; E66.9 Obesity, unspecified; Z86.16 Personal history of COVID-19; Z90.710 Acquired absence of both cervix and uterus; Z87.891 Personal history of nicotine dependence; Z79.899 Other long term (current) drug therapy; Z79.4 Long term (current) use of insulin; Z88.8 Allergy status to other drugs, medicaments and biological substances; W26.8XXA Contact with other sharp object(s), not elsewhere classified, initial encounter
CPT/HCPCS: 12001; 73130-26-LT; 73130-LT; 99283; J3490

== ENCOUNTER 2023-11-03 15:39 | Emergency (ER) | payer OTHER ==
[2023-11-03] MEDS: Acetaminophen 325 MG Tab PO ONE (17:06)
[2023-11-03 17:09] LABS: BASOPHILS ABSOLUTE AUTO 0.1 K/mm3 (0.0-0.2); BASOPHILS PERCENT AUTO 0.7 % (0.0-1.0); EOSINOPHILS ABSOLUTE AUTO 0.3 K/mm3 (0.0-0.4); EOSINOPHILS PERCENT AUTO 3.4 % (0.0-6.0); HEMATOCRIT 42.8 % (37.0-47.0); HEMOGLOBIN 14.3 gm/dl (12.0-16.0); IMMATURE GRAN ABSOLUTE AUTO 0.04 K/mm3 (0.00-0.05); IMMATURE GRAN PERCENT AUTO 0.5 % (0.0-0.4); LYMPHOCYTES ABSOLUTE AUTO 2.6 K/mm3 (1.0-4.8); LYMPHOCYTES PERCENT AUTO 31.9 % (24.0-44.0); MEAN CORPUSCULAR HEMOGLOBIN 31.3 pg (28.0-32.0); MEAN CORPUSCULAR HGB CONC 33.4 g/dl (32.0-36.0); MEAN CORPUSCULAR VOLUME 93.7 fl (83.0-99.0); MEAN PLATELET VOLUME 9.8 fl (9.4-12.3); MONOCYTES ABSOLUTE AUTO 0.8 K/mm3 (0.0-0.8); MONOCYTES PERCENT AUTO 9.9 % (0.0-8.0); NEUTROPHILS ABSOLUTE AUTO 4.4 K/mm3 (1.8-7.7); NEUTROPHILS PERCENT AUTO 53.6 % (41.0-71.0); PLATELET COUNT,PLT 276 K/mm3 (150-400); RED BLOOD CELL COUNT 4.57 M/mm3 (4.10-5.30); WHITE BLOOD CELL COUNT,WBC 8.27 K/mm3 (3.9-11.3)
[2023-11-03 17:37] LABS: A/G RATIO 1.4 (1-2); ANION GAP 10.4 (5-15); BILIRUBIN TOTAL 0.3 mg/dL (0.2-1.0); BUN/CREATININE RATIO 16.7 (14-18); CALCIUM 9.3 mg/dL (8.5-10.1); CREATININE 0.9 mg/dL (0.55-1.02); EST CRCL DRUG DOSING (CG) 62.42 mL/min; POTASSIUM,K 4.4 mEq/L (3.5-5.1); PROTEIN TOTAL,TP 6.8 g/dl (6.4-8.2)
== END 2023-11-03 18:20 | disposition home or self-care (01) ==
LOC: JD.ED 15:39
DX: H66.002 Acute suppurative otitis media without spontaneous rupture of ear drum, left ear (principal); I10 Essential (primary) hypertension; E78.00 Pure hypercholesterolemia, unspecified; E66.9 Obesity, unspecified; Z68.42 Body mass index [BMI] 45.0-49.9, adult; Z86.16 Personal history of COVID-19; Z90.710 Acquired absence of both cervix and uterus; Z79.899 Other long term (current) drug therapy; Z79.84 Long term (current) use of oral hypoglycemic drugs; Z88.8 Allergy status to other drugs, medicaments and biological substances
CPT/HCPCS: 36415; 70486; 80053; 85025; 99283; A9270

== ENCOUNTER 2024-01-24 10:38 | Day surgery (SDC) | payer OTHER ==
[~2024-01-24 10:38] MED LIST: Lactated Ringers 1,000 ML IV SCH; Sodium Chloride 0.9% 10 ML Syringe FLUSH PRN; Sodium Chloride 0.9% 10 ML Syringe FLUSH SCH
[2024-01-24] MEDS ORDERED: Lidocaine 2% 5 ML SDV ONE (10:46)
[2024-01-24] MEDS ORDERED: Midazolam 1 MG/ML 2 ML SDV ONE (10:46)
[2024-01-24] MEDS ORDERED: fentaNYL 100 MCG/2 ML SDV ONE (10:46)
[2024-01-24] MEDS ORDERED: Propofol 200 MG/20 ML SDV ONE ×2 (10:46→10:51)
[2024-01-24] MEDS: Lactated Ringers 1,000 ML IV SCH (11:00)
== END 2024-01-24 12:50 | disposition home or self-care (01) ==
LOC: JD.SDS 10:38
PROVIDERS: ATTEND Surgery
DX: Z12.11 Encounter for screening for malignant neoplasm of colon (principal); D12.3 Benign neoplasm of transverse colon; D12.4 Benign neoplasm of descending colon; K62.1 Rectal polyp; K21.00 Gastro-esophageal reflux disease with esophagitis, without bleeding; K22.70 Barrett's esophagus without dysplasia; K44.9 Diaphragmatic hernia without obstruction or gangrene; K57.30 Diverticulosis of large intestine without perforation or abscess without bleeding; E11.9 Type 2 diabetes mellitus without complications; E66.01 Morbid (severe) obesity due to excess calories; I10 Essential (primary) hypertension; J44.89 Other specified chronic obstructive pulmonary disease; F17.290 Nicotine dependence, other tobacco product, uncomplicated; Z79.899 Other long term (current) drug therapy
CPT/HCPCS: 43239; 45380; J2250; J2704; J3010; J7120; 00813; J3490